=== PATIENT | female | born 1975 | race African-American/Black ===

== ENCOUNTER 2016-07-14 01:48 | Emergency (ER) | payer BC ==
[~2016-07-14] VITALS: Ht 165.1 cm; Wt 50.0 kg
[~2016-07-14 01:48] MED LIST: CLARITIN10 MG PO; NAPROSYN500 MG PO; PATANOL OP100 DROP/5 BOTH EYES
[2016-07-14 03:25] LABS: HEMATOCRIT 34.8 % (36.0-46.0); MCH 23.2 PG (29.0-34.0); MCHC 30.7 G/DL (30.0-36.0); MCV 75.3 FL (83-99); MEAN PLAT.VOLUME 8.9 uM^3 (9.5-12.4); PLATELET COUNT 383 K/uL (156-360); RBC DIS.WIDTH-CV 14.6 % (11.8-14.6); RBC DIS.WIDTH-SD 39.4 % (39-53); RED BLOOD COUNT 4.62 M/uL (3.80-5.20); WHITE BLOOD COUNT 5.9 K/uL (4.1-10.2)
[2016-07-14 03:35] LABS: CHLORIDE 109 mEq/L (99-109); POTASSIUM 3.8 mEq/L (3.7-5.4); SODIUM 140 mEq/L (136-147)
[2016-07-14 03:37] LABS: GLUCOSE 95 mg/dL (70-99)
[2016-07-14 03:39] LABS: ANION GAP 9 MEQ/L (2-14)
[2016-07-14 03:41] LABS: GFR ESTIMATE (CALCULATED) > 59 mL/min/
[2016-07-14 03:42] LABS: UREA NITROGEN (BUN) 11 mg/dL (9-23)
[2016-07-14 03:49] LABS: QUANTITATIVE HCG < 4.0 MIU/ML
[2016-07-14] MEDS ORDERED: CIPRO500 MG PO (04:45)
[2016-07-14] MEDS ORDERED: ZITHROMAX500 MG PO (04:45)
[2016-07-14 04:47] LABS: ADD MIUA? YES; BILIRUBIN NEGATIVE; BLOOD NEGATIVE; COLOR YELLOW ((YELLOW)); GLUCOSE (STRIP) NEGATIVE; KETONES 5; LEUKOCYTES MODERATE; NITRITE NEGATIVE; PROTEIN (STRIP) 30; SPECIFIC GRAVITY 1.031 (1.000-1.030)
[2016-07-14 05:20] VITALS: BP 128/93
[2016-07-14 05:20] LABS: BACTERIA RARE /HPF; EPITHELIAL CELLS 1+ /HPF; MUCUS 4+ /LPF; UCUL ADDED? NO; WHITE BLOOD CELLS 30-40 /HPF (0-5); WHITE BLOOD CELLS CLUMP RARE /HPF (0-5)
[2016-07-16 12:59] LABS: CHLAMYDIA TRACHOMATIS POSITIVE; NEISSERIA GONORRHOEAE NEGATIVE
== END 2016-07-14 05:20 | disposition home or self-care (01) ==
LOC: EME 01:48
PROVIDERS: Emergency Medicine
DX: N83.201 Unspecified ovarian cyst, right side (principal); F17.200 Nicotine dependence, unspecified, uncomplicated
CPT/HCPCS: 74176; 76856; 80048; 81003; 84702; 85027; 87086; 87491; 87591; 99281; 99284; J2270